=== PATIENT | female | born 1960 | race Caucasian/White ===

== ENCOUNTER 2021-11-02 12:29 | Emergency (ER) | payer MEDICARE, SELFPAY ==
--- NOTE | ~2021-11-02 | XR_ITS ---
EXAMINATION: XR chest 2V DATE: 11/02/2021 13:13 INDICATION: Shortness of breath TECHNIQUE: PA and lateral views of the chest were obtained. COMPARISON: Chest radiograph dated 01/31/2018 FINDINGS: The lungs remain clear with no focal airspace opacities, pulmonary edema, pleural effusion or pneumot horax. The cardiomediastinal silhouette is normal. Moderate thoracic spondylosis. IMPRESSION: 1. No acute cardiopulmonary disease. Reviewed, dictated and finalized at location A.
[2021-11-02 12:33] VITALS: BP 159/93; PULSE 78; RESP 18; TEMP 36.6; O2SAT 100
--- NOTE | 2021-11-02 12:37 | ECG_ITS ---
Measurements Intervals [place] Rate: 70 P: 7 ID: 134 QRS: 43 QRSD: 79 T: 28 QT: 390 QTc: 421 Interpretive Statements SINUS RHYTHM NONSPECIFIC T-WAVE ABNORMALITY ABNORMAL ECG NO PREVIOUS ECG AVAILABLE FOR COMPARISON Electronically Signed On 11-02-2021 13:57:53 CDT by Bahman Crawford M.D.
[2021-11-02 13:04] LABS: Basophils Absolute Auto 0.1 K/mm3 (0.0-0.1); Basophils Percent Auto 0.7 % (0.2-1.2); Eosinophils Absolute Auto 0.4 K/mm3 (0-0.3); Hematocrit 46.3 % (37.0-47.0); Hemoglobin 15.4 g/dL (12.0-15.0); Immature Granulocyte Absolute 0.03 K/mm3 (0.00-0.031); Immature Granulocyte Percent A 0.3 % (0-0.5); Lymphocytes Absolute Auto 2.24 K/mm3 (0.9-3.2); Lymphocytes Percent Auto 22.2 % (18.3-44.2); Mean Corpuscular HGB Conc 33.3 g/dl (32-36); Mean Corpuscular Hemoglobin 30.9 pg (26-34); Mean Corpuscular Volume 92.8 fl (80-100); Mean Platelet Volume 10.2 fl (7.4-10.4); Monocytes Absolute Auto 0.7 K/mm3 (0.1-0.6); Monocytes Percent Auto 6.6 % (2.6-8.5); Neutrophils Absolute Auto 6.7 K/mm3 (1.3-6.7); Neutrophils Percent Auto 66.2 % (45.5-73.1); Platelet Count Result 353 k/mm3 (150-375); Red Blood Count 4.99 M/mm3 (4.2-5.4); Red Cell Distribution Width 12.4 % (11.5-14.5); White Blood Count 10.1 K/mm3 (4.5-10.0)
[2021-11-02 13:13] LABS: Alanine Aminotransferase 17 U/L (6-35); Albumin Level 4.2 g/dL (3.5-5.1); Alkaline Phosphatase 84 U/L (38-126); Anion Gap 9 mmol/L (8-16); Aspartate Amino Transferase 21 U/L (14-36); Bilirubin,Total 0.4 mg/dL (0.2-1.3); Blood Urea Nitrogen 10 mg/dL (7-17); Calcium 9.6 mg/dL (8.4-10.2); Carbon Dioxide 28 mmol/L (22-30); Chloride 99 mmol/L (98-107); Estimated CRCL calculation 70 ml/min; Estimated Glomerular Filt Rate > 60; Glucose 98 mg/dL (65-110); Potassium 3.9 mmol/L (3.4-5.0); Sodium 136 mmol/L (137-145)
--- NOTE | 2021-11-02 13:50 | ED.SOB ---
HPI - SOB/Dyspnea General Chief Complaint: Shortness of Breath/Dyspnea Stated Complaint: sob Time Seen by Provider: 11/02/21 13:01 Source: patient Mode of arrival: ambulatory Limitations: no limitations History of Present Illness HPI Narrative: This is a 60 year old female that presents to the ER for shortness of breath. Worsening over the last month. She has been using her nebulizer treatments with little relief. She is not on any inhaled corticosteroids for her asthma. She is a current daily smoker. Denies chest pain or lower extremity edema. Related Data Home Medications Medication Instructions Recorded Confirmed albuterol sulfate 90 mcg/actuation inhalation 11/02/21 aerosol inhaler brimonidine 0.2 % eye drops drp 11/02/21 dorzolamide 2 % eye drops drp 11/02/21 fluticasone propionate 50 intranasal 11/02/21 mcg/actuation nasal spray,suspension furosemide 20 mg tablet mg 11/02/21 hydrochlorothiazide 25 mg tablet mg 11/02/21 hydrocodone 7.5 mg-acetaminophen tablet 11/02/21 325 mg tablet ipratropium 0.5 mg-albuterol 3 mg ml inhalation 11/02/21 (2.5 mg base)/3 mL nebulization soln potassium chloride 10 mEq meq PO 11/02/21 11/02/21 tablet,extended release Allergies Allergy/AdvReac Type Severity Reaction Status Date / Time amoxicillin Allergy Unknown Hives Unverified 11/02/21 14:16 clavulanic acid Allergy Unknown Hives Unverified 11/02/21 14:16 morphine Allergy Unknown Vomiting Unverified 11/02/21 14:16 Review of Systems Review of Systems: CONSTITUTIONAL: Denies fever CARDIOVASCULAR: Denies chest pain, or edema. RESPIRATORY: Reports dyspnea. All systems reviewed & are unremarkable except as noted in HPI and below PMFSH Past Medical History Medical History (Updated 11/02/21 @ 15:35 by Dolly Carl PA-C) History of asthma Social History Social History (Updated 11/02/21 @ 13:51 by Dolly Carl PA-C) Smoking status: Current every day smoker Exam Narrative: GENERAL: Well-appearing, well-nourished, and in no acute distress. HEAD: Normocephalic, atraumatic. EYES: EOMI. CHEST: No respiratory distress. Diffuse wheezing noted. No rales or rhonchi HEART: Regular rate and rhythm. No murmur heard. Normal peripheral pulses. EXTREMITIES: Normal range of motion. No edema. SKIN: Warm, dry, no rash. NEURO: No focal deficits. Alert and oriented x3. PSYCH: Normal mood and affect Course Vital Signs Vital signs: Vital Signs Temperature 98 F 11/02/21 12:33 Pulse Rate 78 11/02/21 12:33 Respiratory Rate 18 11/02/21 12:33 Blood Pressure 159/93 H 11/02/21 12:33 Pulse Oximetry 100 11/02/21 12:33 Oxygen Delivery Room Air 11/02/21 12:33 Temperature 98 F 11/02/21 12:33 Pulse Rate 76 11/02/21 14:53 Respiratory Rate 16 11/02/21 14:53 Blood Pressure 109/65 11/02/21 14:50 Pulse Oximetry 99 11/02/21 14:50 Oxygen Delivery Room Air 11/02/21 14:22 MDM - SOB/Dyspnea MDM Narrative Medical decision making narrative: Patient presents to the emergency department for shortness of breath ongoing over the last month. She is afebrile and nontoxic-appearing. Her vitals are stable. CBC metabolic panel without concerning findings. D-dimer is not elevated. EKG without acute ST changes. Chest x-ray without acute cardiopulmonary abnormality. Patient given nebulizer treatment and steroid with improvement. She is still quite wheezy on exam, although her airways are opened up. I did offer patient admission for further management of asthma exacerbation. She declines at this time. Patient will be discharged with continued oral antibiotics. She does have a nebulizer machine at home. She is to follow-up with her primary care doctor. She was given warnings to return to the ER Lab Data Attestation: I reviewed the patient's lab results. Result diagrams: 11/02/21 12:48 11/02/21 12:49 Labs: Lab Results 11/02/21 11/02/21
[2021-11-02] MEDS: ALBUTEROL SULFATE NEB 2.5 MG/3 ML INH 15 MG INHALATION (14:01)
[2021-11-02] MEDS: IPRATROPIUM BR 0.02% INH SOLN 0.5 MG/2.5 ML VIAL 1.5 MG INHALATION (14:01)
[2021-11-02 14:02] VITALS: PULSE 77; RESP 16
[2021-11-02 14:10] LABS: D Dimer 0.27 ug/mL (<0.48)
[2021-11-02] MEDS: methylPREDNISolone SOD SUCC 125 MG VIAL IV PUSH (14:16)
[2021-11-02 14:22] VITALS: PULSE 73; O2SAT 95
[2021-11-02 14:50] VITALS: BP 109/65; PULSE 75; RESP 99; O2SAT 99
[2021-11-02 14:53] VITALS: PULSE 76; RESP 16
[2021-11-02 15:52] VITALS: BP 110/74; PULSE 75; RESP 19; O2SAT 99
== END 2021-11-02 15:53 | disposition home or self-care (01) ==
PROVIDERS: Emergency Medicine; Physician Assistant; Emergency Provider Family Medicine; PCP Family Medicine
DX: J45.21 Mild intermittent asthma with (acute) exacerbation (principal); F17.200 Nicotine dependence, unspecified, uncomplicated
CPT/HCPCS: 36415; 71046; 80053; 85025; 85380; 93005; 94640; 96374; 99284; J2930